=== PATIENT | male | born 1990 | race Hispanic/Latino ===

== ENCOUNTER 2018-07-30 12:55 | Outpatient (CLI) | payer OTHER ==
--- NOTE | 2018-07-30 14:04 | CT ---
CT OF THE LEFT FOOT: DATE: 07/30/2018. PROVIDED CLINICAL HISTORY:: Pain status post injury. FINDINGS: There is a nondisplaced intraarticular fracture involving the plantar base of the 3rd middle phalanx. There is dorsal dislocation of the 2nd digit PIP joint with associated impaction fracture involving t he plantar half of the middle phalangeal articular surface. Multiple small intraarticular bodies are present. There is an associated PIP joint effusion. No additional fracture is evident. No additional fracture is evident. Alignment appears otherwise a natomic. Joint spaces appear otherwise preserved. The regional soft tissues demonstrate an otherwise unremarkable CT appearance. IMPRESSION: 1. Second digit proximal interphalangeal fracture dislocation. 2. Third digit middle phalangeal base intraarticular fracture. POS: C
== END 2018-07-30 12:56 | disposition home or self-care (01) ==
LOC: BICCT 12:55
PROVIDERS: ATTEND Family Medicine
DX: S90.32XD Contusion of left foot, subsequent encounter (principal); S92.412D Displaced fracture of proximal phalanx of left great toe, subsequent encounter for fracture with routine healing; S92.522D Displaced fracture of middle phalanx of left lesser toe(s), subsequent encounter for fracture with routine healing